=== PATIENT | male | born 1965 | race Caucasian/White ===

== ENCOUNTER 2017-10-03 07:26 | Day surgery (SDC) | payer OTHER ==
[2017-10-03] MEDS ORDERED: DEMEROL 50 MG IV ONE (07:27)
[2017-10-03] MEDS ORDERED: VERSED 5 MG/5 ML IV ONE (07:27)
--- NOTE | 2017-10-03 07:30 | HP ---
DATE OF SURGERY: 10/03/2017 ADMISSION DIAGNOSIS: Blood in the stool. ANTICIPATED PROCEDURE: Colonoscopy. HISTORY OF PRESENT ILLNESS: The patient had two months ago some blood, had a little bit more and presents for colonoscopy. He is 62 years old. PAST MEDICAL HISTORY: ALLERGIES: NONE. MEDICATIONS: Lisinopril, Protonix, Metformin. PAST SURGICAL HISTORY: Knee surgery. SOCIAL HISTORY: Negative. FAMILY HISTORY: Negative. REVIEW OF SYSTEMS: Negative. PHYSICAL EXAMINATION: VITAL SIGNS: Normal. CHEST: Clear. COR: Regular. ABDOMEN: No palpable organomegaly or mass. IMPRESSION: Evaluation for blood per rectum. PLAN: Colonoscopy.
[2017-10-03] MEDS ORDERED: Lactated Ringers 1,000 ML IV ONE (08:27)
[2017-10-03] MEDS ORDERED: Lactated Ringers 1,000 ML IV SCH (08:30)
[2017-10-03 08:55] VITALS: O2SAT 99
[2017-10-03 13:28] VITALS: BP 114/78; PULSE 80
--- NOTE | 2017-10-03 13:57 | OP ---
SURGERY DATE/TIME: 10/03/2017 1115 PREOPERATIVE DIAGNOSIS: Blood in stool. POSTOPERATIVE DIAGNOSIS: Normal except for moderate diverticulosis. PROCEDURE: Colonoscopy complete to cecum. SURGEON: Steffen Mooney M.D. ANESTHESIA: IV sedation 15 minutes titrated. COMPLICATIONS: None. CONDITION: Stable. INDICATION: A patient requiring evaluation. DESCRIPTION OF PROCEDURE: Taken to the endoscopy. IV sedation was titrated. Oximeter is kept over 90%. The scope advanced to the cecum. On circumferential withdrawal there were no mucosal lesions despite him having had history of blood in the stool. The scope was re-introduced to about 75 pulled out and lightly exsufflated. The patient tolerated the procedure satisfactorily. IMPRESSION: Satisfactory examination.
== END 2017-10-03 12:45 | disposition home or self-care (01) ==
LOC: SDC 07:26
PROVIDERS: ATTEND Surgery
PROC: 0DJD8ZZ Inspection of Lower Intestinal Tract, Via Natural or Artificial Opening Endoscopic (ICD-10-PCS; principal; 2017-10-03)
DX: K57.90 Diverticulosis of intestine, part unspecified, without perforation or abscess without bleeding (principal)
CPT/HCPCS: J2175; J2250